=== PATIENT | female | born 1960 | race Caucasian/White ===

== ENCOUNTER → 2019-04-22 | Outpatient (CLI) | payer MEDICARE, OTHER ==
[~2019-04-22] MED LIST: ASPI-496 PO; ERGO500017 PO; FLUO20CA8 PO; GLUC500T11 PO; HYDR-3245 PO; NORT10CA PO; OMEP40CA42 PO; OXYB5TAB10 PO; PREG150C PO; TELM20TA PO; VALA500T PO
[2019-04-22 12:28] LABS: BASOPHILS # (AUTO) 0.09 x10^3/uL (0-0.1); BASOPHILS % (AUTO) 1 % (0-1); EOSINOPHILS # (AUTO) 0.16 x10^3/uL (0-0.4); EOSINOPHILS % (AUTO) 2 % (1-7); LYMPHOCYTES # (AUTO) 3.25 x10^3/uL (1-3.4); LYMPHOCYTES % (AUTO) 41 % (22-44); MD NO; MEAN CORPUSCULAR HEMOGLOBIN 29.4 pg (27.0-34.8); MEAN CORPUSCULAR HGB CONC 32.3 g/dL (32.4-35.8); MEAN PLATELET VOLUME 8.5 fL (7.4-10.4); MONOCYTES # (AUTO) 0.71 x10^3/uL (0.2-0.8); MONOCYTES % (AUTO) 9 % (2-9); NEUTROPHILS # (AUTO) 3.71 x10^3/uL (1.8-6.8); NEUTROPHILS % (AUTO) 47 % (42-75); PLATELET COUNT 323 x10^3/uL (130-400); RED BLOOD COUNT 4.66 x10^6/uL (3.82-5.3); RED CELL DISTRIBUTION WIDTH 16.2 % (9.6-15.2)
[2019-04-22 12:38] LABS: ALANINE AMINOTRANSFERASE 20 U/L (12-78); ALBUMIN 3.7 g/dL (3.4-5.0); ANION GAP 3 mmol/L (5-15); CALCIUM 8.7 mg/dL (8.5-10.1); CHLORIDE 105 mmol/L (98-107); CREATININE 1.39 mg/dL (0.55-1.02)
[2019-04-22 12:40] LABS: ALKALINE PHOSPHATASE 119 U/L (45-117); BILIRUBIN,TOTAL 0.4 mg/dL (0.2-1.0); TOTAL PROTEIN 8.1 g/dL (6.4-8.2)
== END | disposition home or self-care (01) ==
LOC: STAR 11:02
PROVIDERS: ATTEND Urology
DX: Z01.818 Encounter for other preprocedural examination (principal); R32 Unspecified urinary incontinence
CPT/HCPCS: 36415; 80053; 85025; 87086; 93005